=== PATIENT | female | born 1960 | race Two or more races ===

== ENCOUNTER 2017-03-15 09:53 | Inpatient (IN) | payer OTHER ==
[2017-03-15 10:25] VITALS: BMI 18.0
--- NOTE | 2017-03-15 11:41 | HP ---
CIWA Score - CIWA Score Nausea/Vomitin-Mild Nausea/No Vomiting Muscle Tremors: 4-Moderate,w/Arms Extend Anxiety: 3 Agitation: 4-Moderately Restless Paroxysmal Sweats: 3 Orientation: 0-Oriented Tacttile Disturbances: 0-None Auditory Disturbances: 0-None Visual Disturbances: 0-None Headache: 1-Very Mild CIWA-Ar Total Score: 16 Admission ROS BHS - HPI Chief Complaint: I am here to detox off the alcohol. Allergies/Adverse Reactions: Allergies Allergy/AdvReac Type Severity Reaction Status Date / Time No Known Allergies Allergy Verified 03/15/17 11:17 History of Present Illness: pt is a 56yr old female with a history of alcohol dependence seeking detox for treatment. Pt is also on a MMTP program received 150mg yesterday. pending verification. Exam Limitations: No Limitations - Ebola screening Have you traveled outside of the country in the last 21 days: No Have you had contact with anyone from an Ebola affected area: No Have you been sick,other than usual withdrawal symptoms: No Do you have a fever: No - Review of Systems Constitutional: Chills, Diaphoresis, Loss of Appetite, Night Sweats, Changes in sleep, Weakness, Unintentional Wgt. Loss EENT: reports: Tearing, Nose Congestion Respiratory: reports: No Symptoms reported Cardiac: reports: No Symptoms Reported GI: reports: Nausea, Poor Appetite, Poor Fluid Intake, Vomiting, Indigestion : reports: No Symptoms Reported Musculoskeletal: reports: Back Pain Integumentary: reports: Flushing, Sweating Neuro: reports: Headache, Tingling Endocrine: reports: Excessive Sweating, Flushing, Intolerance to Cold, Intolerance to Heat Hematology: reports: No Symptoms Reported Psychiatric: reports: Judgement Intact, Mood/Affect Appropiate, Orientated x3, Agitated, Anxious Other Systems: Reviewed and Negative Patient History - Patient Medical History Hx Anemia: No Hx Asthma: Yes Hx Chronic Obstructive Pulmonary Disease (COPD): No Hx Cancer: No Hx Cardiac Disorders: No Hx Congestive Heart Failure: No Hx Hypertension: No Hx Hypercholesterolemia: No Hx Pacemaker: No HX Cerebrovascular Accident: No Hx Seizures: No Hx Diabetes: No Hx Gastrointestinal Disorders: No Hx Liver Disease: No Hx Genitourinary Disorders: No Hx Sexually Transmitted Disorders: Yes (Syphillis 20 yrs ago was treated) Hx Renal Disease (ESRD): No Hx Thyroid Disease: No Hx Human Immunodeficiency Virus (HIV): Yes (SINCE 1984 --ON MEDS) Hx Hepatitis C: No Hx Depression: Yes Hx Suicide Attempt: No (denies) Hx Bipolar Disorder: No Hx Schizophrenia: No - Patient Surgical History Past Surgical History: Yes Hx Section: Yes (X 2--IN 1983 AND 1990) Anesthesia Reaction: No - PPD History Previous Implant?: Yes Documented Results: Negative w/o proof Date: 12/13/12 PPD to be Administered?: Yes - Reproductive History Patient is a Female of Child Bearing Age (11 -55 yrs old): No Last Menstrual Period: 05/03/07 Patient : No - Smoking Cessation Smoking history: Current every day smoker Have you smoked in the past 12 months: Yes Aproximately how many cigarettes per day: 40 Hx Chewing Tobacco Use: No Initiated information on smoking cessation: Yes 'Breaking Loose' booklet given: 03/15/17 - Substance & Tx. History Hx Alcohol Use: Yes Hx Substance Use: Yes Substance Use Type: Alcohol, Heroin, Marijuana Hx Substance Use Treatment: Yes ([facility] 2012) - Substances Abused Alcohol-beer/wine Route: Oral Frequency: Daily Amount used: 5 (16 oz.)/2 pts. Age of first use: 26 Date of Last Use: 03/14/17 Family Disease History - Family Disease History Family Disease History: CA: Mother (tyroid ), Other: Mother Admission Physical Exam BHS - Vital Signs Vital Signs: Vital Signs - 24 hr 03/15/17 10:21 Temperature 97.4 F L Pulse Rate 116 H Respiratory 16 Rate Blood Pressure 129/92 - Physical General Appearance: Yes: Appropriately Dressed, Moderate Distress, Tremorous, Irritable, Sweating, Anxious HEENTM: Yes: Normal Voice, Nasal Congestion, Rhinorrhea Respiratory: Yes: Lungs Clear, Normal Breath Sounds, No Respiratory Distress Neck: Yes: No masses,lesions,Nodules Breast: Yes: Within Normal Limits Cardiology: Yes: Regular Rhythm, Regular Rate, S1, S2 Abdominal: Yes: Normal Bowel Sounds, Non Tender, Soft Genitourinary: Yes: Within Normal Limits Back: Yes: Normal Inspection Musculoskeletal: Yes: full range of Motion, Back pain Extremities: Yes: Normal Capillary Refill, Non-Tender, Tremors Neurological: Yes: Fully Oriented, Alert, Normal Response Integumentary: Yes: Normal Color, Diaphoresis Lymphatic: Yes: Within Normal Limits - Diagnostic (1) Methadone maintenance therapy patient Current Visit: Yes Status: Chronic Comment: dose verified with 150mg from [facility] mmtp. last dose taken yesterday. (2) Nicotine dependence Current Visit: Yes Status: Chronic Qualifiers: Nicotine product type: cigarettes Substance use status: uncomplicated Qualified Code(s): F17.210 - Nicotine dependence, cigarettes, uncomplicated (3) HIV (human immunodeficiency virus infection) Current Visit: Yes Status: Acute (4) Asthma Current Visit: Yes Status: Chronic Qualifiers: Asthma severity: mild intermittent Asthma complication type: uncomplicated Qualified Code(s): J45.20 - Mild intermittent asthma, uncomplicated (5) GERD (gastroesophageal reflux disease) Current Visit: Yes Status: Chronic Qualifiers: Esophagitis presence: without esophagitis Qualified Code(s): K21.9 - Gastro-esophageal reflux disease without esophagitis (6) Weight loss Current Visit: Yes Status: Acute Cleared for Admission BHS - Detox or Rehab S Level of Care: Medically Managed Detox Regimen/Protocol: Librium [facility] Breath Alcohol Content Breath Alcohol Content: 0 Urine Pregancy Test - Result Urine Test Results: Negative- NO Line Present Urine Drug Screen - Results Drug Screen Negative: No Urine Drug Screen Results: THC-Marijuana, SYLVIA-Cocaine, OPI-Opiates, MTD- Methadone
[2017-03-15] MEDS ORDERED: MENTHOL/PHENOL 1 EACH UD MM PRN (11:49)
[2017-03-15] MEDS ORDERED: hydrOXYzine PAMOATE 50 MG CAPSULE (FP) PO PRN (11:49)
[2017-03-15] MEDS ORDERED: NICOTINE POLACRILEX 4 MG GUM BUC PRN (11:49)
[2017-03-15] MEDS ORDERED: MAGNESIUM HYDROX 2400MG/30ML ORAL SUSPENSION 30 ML CUP PO PRN (11:49)
[2017-03-15] MEDS ORDERED: guaiFENesin/D-METHORPHAN HB 10 ML UNIT-DOSE CUPS PO PRN (11:49)
[2017-03-15] MEDS ORDERED: LOPERAMIDE HCL 2 MG CAPSULE PO PRN (11:49)
[2017-03-15] MEDS ORDERED: ACETAMINOPHEN 325 MG TABLET (FP) PO PRN (11:49)
[2017-03-15] MEDS ORDERED: MAG HYDROX/AL HYDROX/SIMETH 30 ML UNIT-DOSE CUP PO PRN (11:49)
[2017-03-15] MEDS ORDERED: P-EPHED 60MG/TRIPROLIDI 2.5MG TABLET PO PRN (11:49)
[2017-03-15] MEDS ORDERED: chlordiazePOXIDE HCL 25 MG CAPSULE PO PRN (11:49)
[2017-03-15] MEDS ORDERED: MAGNESIUM CITRATE 300 ML BOTTLE PO PRN (11:49)
[2017-03-15] MEDS ORDERED: IBUPROFEN 400 MG TABLET (FP) PO PRN (11:49)
[2017-03-15] MEDS ORDERED: ALBUTEROL SO4 6.7 GM HFA INHALER IH PRN (11:51)
[2017-03-15] MEDS ORDERED: METHADONE HCL 10 MG TABLET PO ONE (11:52)
[2017-03-15] MEDS ORDERED: chlordiazePOXIDE HCL 25 MG CAPSULE PO ONE (12:12)
[2017-03-15] MEDS ORDERED: METHADONE 120 MG, METHADONE 30 MG PO ONE (12:20)
[2017-03-15] MEDS ORDERED: METHADONE HCL 10 MG TABLET ONE (13:22)
[2017-03-15] MEDS ORDERED: METHADONE HCL 40 MG DISPERSABLE TABLET ONE (13:22)
[2017-03-15] MEDS: PANTOPRAZOLE 40 MG TABLET (FP) PO SCH (13:26)
[2017-03-15 17:24] LABS: URINE APPEARANCE CLEAR; URINE BILIRUBIN NEGATIVE (NEGATIVE); URINE BLOOD 1+ (NEGATIVE); URINE COLOR AMBER; URINE GLUCOSE (UA) NEGATIVE (NEGATIVE); URINE KETONE TRACE (NEGATIVE); URINE LEUK ESTERASE TRACE (NEGATIVE); URINE NITRITE NEGATIVE (NEGATIVE); URINE PROTEIN NEGATIVE (NEGATIVE)
[2017-03-15] MEDS: chlordiazePOXIDE HCL 25 MG CAPSULE PO SCH ×2 (17:34→22:15)
[2017-03-15 19:22] LABS: URINE MUCUS RARE; URINE RBC 3 /hpf (0-3); URINE WBC 2 /hpf (3-5)
[2017-03-15] MEDS: diphenhydrAMINE HCL 50 MG CAPSULE PO PRN (22:15)
[2017-03-15] MEDS: THIAMINE HCL 100 MG TABLET (FP) PO SCH (22:15)
[2017-03-16] MEDS ORDERED: METHADONE HCL 10 MG TABLET ONE (05:07)
[2017-03-16] MEDS ORDERED: METHADONE HCL 40 MG DISPERSABLE TABLET ONE (05:07)
[2017-03-16] MEDS: chlordiazePOXIDE HCL 25 MG CAPSULE PO SCH ×4 (05:29→22:04)
[2017-03-16] MEDS: METHADONE 120 MG, METHADONE 30 MG PO SCH (05:29)
[2017-03-16] MEDS ORDERED: METHADONE HCL 40 MG DISPERSABLE TABLET PO SCH (06:00)
[2017-03-16] MEDS: DARUNAVIR ETHANOLATE 800 MG TAB PO SCH (09:31)
[2017-03-16] MEDS: RITONAVIR 100 MG TABLET PO SCH (09:32)
[2017-03-16] MEDS: EMTRICITABINE 200MG/TENOFOVIR 300MG PO SCH (09:32)
--- NOTE | 2017-03-16 09:49 | CONSULT ---
[facility] Psychiatric Consult - Data Date of interview: 03/16/17 Admission source: [facility] Identifying data: This is 56 years old male with no psychiatric hospitalization history intoxicated with: Alcohol, Opioids, Methadone, CVocaine, Cannabis and Nicotine Substance Abuse History: Drug Screen Negative: No. Urine Drug Screen Results: THC-Marijuana, SYLVIA-Cocaine, OPI-Opiates, MTD-Methadone. - Smoking Cessation. Smoking history: Current every day smoker. Have you smoked in the past 12 months: Yes. Aproximately how many cigarettes per day: 40. Hx Chewing Tobacco Use: No. Initiated information on smoking cessation: Yes. 'Breaking Loose' booklet given: 03/15/17. - Substance & Tx. History. Hx Alcohol Use: Yes. Hx Substance Use: Yes. Substance Use Type: Alcohol, Heroin, Marijuana. Hx Substance Use Treatment: Yes ([facility] 2013). - Substances Abused. Alcohol-beer/wine. Route: Oral. Frequency: Daily. Amount used: 5 (16 oz.)/2 pts. Age of first use: 26. Date of Last Use: 03/14/17 Medical History: AIs, HIV+, Weight loss, Asthma, GERD, MMTP 150mg/day Psychiatric History: Patient reprots history of depression andinsomnia, reports taking prior to admission: Remeron 30mg po qhs Additional Comment: Drug Screen Negative: No. Urine Drug Screen Results: THC- Marijuana, SYLVIA-Cocaine, OPI-Opiates, MTD-Methadone. Remeron 30mg po qhs Mental Status Exam - Mental Status Exam Alert and Oriented to: Person Cognitive Function: Fair Patient Appearance: Unkempt Mood: Sad Affect: Flat Patient Behavior: Cooperative Speech Pattern: Appropriate Voice Loudness: Mildly Soft/Quiet Thought Process: Circumstantial Thought Disorder: Being Controlled Hallucinations: Denies Suicidal Ideation: Denies Homicidal Ideation: Denies Insight/Judgement: Fair Sleep: Difficulty falling asleep Appetite: Weight loss Muscle strength/Tone: Mild Hypotonicity Gait/Station: Shuffling Additional Comments: Remeron 30mg po qhs Psychiatric Findings - Problem List ([place] 1, 2,3) (1) Drug-induced mood disorder Current Visit: Yes Status: Acute (2) Methadone maintenance therapy patient Current Visit: Yes Status: Chronic Comment: dose verified with 150mg from [facility]. last dose taken yesterday. (3) Nicotine dependence Current Visit: Yes Status: Chronic Qualifiers: Nicotine product type: cigarettes Substance use status: uncomplicated Qualified Code(s): F17.210 - Nicotine dependence, cigarettes, uncomplicated - Initial Treatment Plan Initial Treatment Plan: Remeron 30mg po qhs
[2017-03-16 10:02] LABS: MCH 30.5 pg (25.7-33.7); MCHC 33.2 g/dl (32.0-36.0); MEAN CELL VOLUME 91.9 fl (80-96); MEAN PLT VOLUME 8.2 fl (7.5-11.1); PLATELET COUNT 427 K/MM3 (134-434); RDW 15.2 % (11.6-15.6); WHITE BLOOD COUNT 7.7 K/mm3 (4.0-10.0)
--- NOTE | 2017-03-16 10:10 | PN ---
S CIWA - CIWA Score Nausea/Vomitin-No Nausea/No Vomiting Muscle Tremors: 4-Moderate,w/Arms Extend Anxiety: 3 Agitation: 4-Moderately Restless Paroxysmal Sweats: 3 Orientation: 0-Oriented Tacttile Disturbances: 0-None Auditory Disturbances: 0-None Visual Disturbances: 0-None Headache: 1-Very Mild CIWA-Ar Total Score: 15 BHS Progress Note (SOAP) Subjective: interrupted sleep sweats body aches mild shakes Objective: 03/16/17 10:09 Vital Signs Temperature 98.2 F 03/16/17 10:01 Pulse Rate 75 03/16/17 10:01 Respiratory Rate 18 03/16/17 10:01 Blood Pressure 88/57 03/16/17 10:01 O2 Sat by Pulse Oximetry (%) Laboratory Tests 03/15/17 03/16/17 17:06 06:20 WBC 7.7 RBC 4.88 D Hgb 14.9 D Hct 44.9 D MCV 91.9 MCH 30.5 MCHC 33.2 RDW 15.2 D Plt Count 427 MPV 8.2 Urine Color [place] Urine Appearance Clear Urine pH 5.0 Ur Specific [place] 1.020 Urine Protein Negative Urine Glucose (UA) Negative Urine Ketones Trace H Urine Blood 1+ H Urine Nitrite Negative Urine Bilirubin Negative Urine Urobilinogen 2.0 H Ur Leukocyte Esterase Trace Urine RBC 3 Urine WBC 2 Ur Epithelial Cells Rare Urine Mucus Rare labs pending awake/alert ambulating no acute distress Assessment: 03/16/17 10:10 withdrawal sx Plan: continue detox increase fluids labs pending
[2017-03-16] MEDS: PANTOPRAZOLE 40 MG TABLET (FP) PO SCH (10:28)
[2017-03-16] MEDS: NICOTINE 21 MG/24 HOURS TOPICAL PATCH TD SCH (10:28)
[2017-03-16] MEDS: PRENATAL VITAMINS W/ FOLIC ACID TABLET (FP) PO SCH (10:28)
[2017-03-16 10:54] LABS: ALBUMIN 3.7 g/dl (3.4-5.0); ALK PHOS 82 U/L (45-117); ANION GAP 9 (8-16); BILIRUBIN,TOTAL 0.9 mg/dL (0.2-1.0); CALCIUM 9.6 mg/dL (8.5-10.1); CO2 25 mmol/L (21-32); CREATININE 0.8 mg/dL (0.55-1.02); GLUCOSE,RANDOM 93 mg/dL (74-106); SGOT/AST 22 U/L (15-37); SGPT/ALT 30 U/L (12-78); TOT PROT 7.3 g/dl (6.4-8.2)
--- NOTE | 2017-03-16 14:51 | EKG ---
Test Reason : Blood Pressure : / mmHG Vent. Rate : 095 BPM Atrial Rate : 095 BPM P-R Int : 118 ms QRS Dur : 086 ms QT Int : 396 ms P-R-T Axes : 077 094 017 degrees QTc Int : 497 ms NORMAL SINUS RHYTHM RIGHTWARD AXIS NONSPECIFIC ST AND T WAVE ABNORMALITY PROLONGED QT ABNORMAL ECG NO PREVIOUS ECGS AVAILABLE Confirmed by WILLIAM العلي MD ([id number]) on 03/16/2017 2:50:56 PM Referred By: Confirmed By:WILLIAM العلي MD
[2017-03-16] MEDS: diphenhydrAMINE HCL 50 MG CAPSULE PO PRN (22:04)
[2017-03-16] MEDS: MIRTAZAPINE 30 MG TABLET (FP) PO SCH (22:04)
[2017-03-16] MEDS: THIAMINE HCL 100 MG TABLET (FP) PO SCH (22:04)
[2017-03-17] MEDS ORDERED: METHADONE HCL 40 MG DISPERSABLE TABLET ONE (04:38)
[2017-03-17] MEDS ORDERED: METHADONE HCL 10 MG TABLET ONE (04:39)
[2017-03-17] MEDS: chlordiazePOXIDE HCL 25 MG CAPSULE PO SCH ×2 (05:28→10:33)
[2017-03-17] MEDS: DARUNAVIR ETHANOLATE 800 MG TAB PO SCH (07:36)
[2017-03-17] MEDS: RITONAVIR 100 MG TABLET PO SCH (07:36)
[2017-03-17] MEDS: EMTRICITABINE 200MG/TENOFOVIR 300MG PO SCH (07:40)
[2017-03-17] MEDS: METHADONE 120 MG, METHADONE 30 MG PO SCH (08:54)
[2017-03-17] MEDS: NICOTINE 21 MG/24 HOURS TOPICAL PATCH TD SCH (10:11)
[2017-03-17] MEDS: PRENATAL VITAMINS W/ FOLIC ACID TABLET (FP) PO SCH (10:33)
[2017-03-17] MEDS: PANTOPRAZOLE 40 MG TABLET (FP) PO SCH (10:33)
--- NOTE | 2017-03-17 11:06 | PN ---
S CIWA - CIWA Score Nausea/Vomitin-No Nausea/No Vomiting Muscle Tremors: 4-Moderate,w/Arms Extend Anxiety: 3 Agitation: 4-Moderately Restless Paroxysmal Sweats: 3 Orientation: 0-Oriented Tacttile Disturbances: 0-None Auditory Disturbances: 0-None Visual Disturbances: 0-None Headache: 0-None Present CIWA-Ar Total Score: 14 BHS Progress Note (SOAP) Subjective: agitation anxiety sweats interrupted sleep Objective: 03/17/17 11:05 Vital Signs Temperature 98.4 F 03/17/17 10:27 Pulse Rate 106 H 03/17/17 10:27 Respiratory Rate 16 03/17/17 10:27 Blood Pressure 99/71 03/17/17 10:27 O2 Sat by Pulse Oximetry (%) Laboratory Tests 03/15/17 03/16/17 03/16/17 17:06 06:20 06:20 WBC 7.7 RBC 4.88 D Hgb 14.9 D Hct 44.9 D MCV 91.9 MCH 30.5 MCHC 33.2 RDW 15.2 D Plt Count 427 MPV 8.2 Sodium 134 L Potassium 3.7 Chloride 100 Carbon Dioxide 25 Anion Gap 9 BUN 6 L D Creatinine 0.8 Creat Clearance w eGFR > 60 Random Glucose 93 Calcium 9.6 Total Bilirubin 0.9 D AST 22 ALT 30 D Alkaline Phosphatase 82 Total Protein 7.3 Albumin 3.7 Urine Color Tish Urine Appearance Clear Urine pH 5.0 Ur Specific [place] 1.020 Urine Protein Negative Urine Glucose (UA) Negative Urine Ketones Trace H Urine Blood 1+ H Urine Nitrite Negative Urine Bilirubin Negative Urine Urobilinogen 2.0 H Ur Leukocyte Esterase Trace Urine RBC 3 Urine WBC 2 Ur Epithelial Cells Rare Urine Mucus Rare RPR Titer 03/16/17 06:20 WBC RBC Hgb Hct MCV MCH MCHC RDW Plt Count MPV Sodium Potassium Chloride Carbon Dioxide Anion Gap BUN Creatinine Creat Clearance w eGFR Random Glucose Calcium Total Bilirubin AST ALT Alkaline Phosphatase Total Protein Albumin Urine Color Urine Appearance Urine pH Ur Specific [place] Urine Protein Urine Glucose (UA) Urine Ketones Urine Blood Urine Nitrite Urine Bilirubin Urine Urobilinogen Ur Leukocyte Esterase Urine RBC Urine WBC Ur Epithelial Cells Urine Mucus RPR Titer Nonreactive awake/alert ambulating no acute distress Assessment: 03/17/17 11:05 withdrawal sx Plan: continue detox increase fluids
[2017-03-17] MEDS: chlordiazePOXIDE 5 MG CAPSULE PO SCH ×2 (17:08→22:02)
[2017-03-17] MEDS: diphenhydrAMINE HCL 50 MG CAPSULE PO PRN (22:01)
[2017-03-17] MEDS: THIAMINE HCL 100 MG TABLET (FP) PO SCH (22:02)
[2017-03-17] MEDS: MIRTAZAPINE 30 MG TABLET (FP) PO SCH (22:02)
[2017-03-18] MEDS ORDERED: METHADONE HCL 40 MG DISPERSABLE TABLET ONE (04:41)
[2017-03-18] MEDS ORDERED: METHADONE HCL 10 MG TABLET ONE (04:41)
[2017-03-18] MEDS: chlordiazePOXIDE 5 MG CAPSULE PO SCH (05:25)
[2017-03-18] MEDS: METHADONE 120 MG, METHADONE 30 MG PO SCH (05:25)
[2017-03-18] MEDS: DARUNAVIR ETHANOLATE 800 MG TAB PO SCH (07:28)
[2017-03-18] MEDS: RITONAVIR 100 MG TABLET PO SCH (07:29)
[2017-03-18] MEDS: EMTRICITABINE 200MG/TENOFOVIR 300MG PO SCH (07:30)
--- NOTE | 2017-03-18 09:32 | PN ---
[facility] Progress Note Note: pts' room had a heavy odor of cigarette smoke in the bathroom and in her room. Pt was the only one in the room. Security was called to investigate, counselor and handbook writer spoke with pt but pt denied that she was smoking. Pt was given a final warning and explained that there is absolutely no smoking allowed due to health hazard and policy of the hospital.
--- NOTE | 2017-03-18 09:43 | PN ---
[facility] Progress Note Note: This am same pt had a heavy smell of cigarette smoke on her person and in her bathroom within her room. There were ashes and cigarette buds in and around the toilet within her bathroom. Security was called again and pt did not deny and admit to smoking. Pt was emergent discharged. Pt was d/c in good condition, escorted by security, advised to go back to her MMTP and follow up with aftercare as she had discussed with her counselor. Pt in agreement.
--- NOTE | 2017-03-18 09:49 | DS ---
[facility] Detox Discharge Summary Admission Date: 03/15/17 Discharge Date: 03/18/17 - History Present History: Alcohol Dependence, MMTP - Physical Exam Results Vital Signs: Vital Signs Temperature 98.3 F 03/18/17 06:32 Pulse Rate 93 H 03/18/17 06:32 Respiratory Rate 20 03/18/17 06:32 Blood Pressure 125/76 03/18/17 06:32 O2 Sat by Pulse Oximetry (%) - Treatment Hospital Course: Detox Protocol Followed, Detoxed Safely, Responded well, Discharged Condition Good, Rehab Referral Accepted - Medication Discharge Medications: Ambulatory Orders Darunavir Ethanolate [Prezista -] 800 mg PO DAILY 12/11/12 Emtricitabine/Tenofovir [Truvada Tablet] 1 each PO DAILY 12/11/12 Omeprazole [Prilosec (RX)] 40 mg PO DAILY 12/11/12 Ritonavir [Norvir -] 100 mg PO DAILY 12/11/12 Albuterol Sulfate Inhaler - [Ventolin Hfa Inhaler -] 2 inh PO Q4H PRN 03/15/17 Multivitamins [Tab-A-Vit -] 1 tab PO DAILY 03/15/17 Mirtazapine [Remeron -] 30 mg PO HS #30 tablet 03/16/17 - Diagnosis (1) Methadone maintenance therapy patient Current Visit: Yes Status: Chronic (2) Nicotine dependence Current Visit: Yes Status: Chronic Qualifiers: Nicotine product type: cigarettes Substance use status: uncomplicated Qualified Code(s): F17.210 - Nicotine dependence, cigarettes, uncomplicated (3) HIV (human immunodeficiency virus infection) Current Visit: Yes Status: Chronic (4) Asthma Current Visit: Yes Status: Chronic Qualifiers: Asthma severity: mild intermittent Asthma complication type: uncomplicated Qualified Code(s): J45.20 - Mild intermittent asthma, uncomplicated (5) GERD (gastroesophageal reflux disease) Current Visit: Yes Status: Chronic Qualifiers: Esophagitis presence: without esophagitis Qualified Code(s): K21.9 - Gastro-esophageal reflux disease without esophagitis (6) Weight loss Current Visit: Yes Status: Acute - AMA Did Patient Leave Against Medical Advice: No (emergent discharged)
[2017-03-18 10:22] VITALS: BP 90/67; PULSE 95; TEMP 97.7
[2017-03-18] MEDS: NICOTINE 21 MG/24 HOURS TOPICAL PATCH TD SCH (10:29)
[2017-03-18] MEDS: PRENATAL VITAMINS W/ FOLIC ACID TABLET (FP) PO SCH (10:29)
[2017-03-18] MEDS: PANTOPRAZOLE 40 MG TABLET (FP) PO SCH (10:29)
[2017-03-18] MEDS ORDERED: chlordiazePOXIDE HCL 10 MG CAPSULE PO SCH (17:00)
== END 2017-03-18 09:38 | disposition home or self-care (01) | DRG 773 ==
LOC: YASAS 09:53 → Y6N 12:10
PROVIDERS: ADMIT Internal Medicine; ATTEND Internal Medicine
PROC: HZ2ZZZZ Detoxification Services for Substance Abuse Treatment (ICD-10-PCS; principal; 2017-03-15)
DX: F10.230 Alcohol dependence with withdrawal, uncomplicated (principal); F11.20 Opioid dependence, uncomplicated; F17.210 Nicotine dependence, cigarettes, uncomplicated; F19.24 Other psychoactive substance dependence with psychoactive substance-induced mood disorder; F91.8 Other conduct disorders; Z21 Asymptomatic human immunodeficiency virus [HIV] infection status; J45.20 Mild intermittent asthma, uncomplicated; K21.9 Gastro-esophageal reflux disease without esophagitis; Z87.42 Personal history of other diseases of the female genital tract; Z87.898 Personal history of other specified conditions
CPT/HCPCS: 36415; 80053; 81003; 81015; 85027; 86593; 93005; 93010